=== PATIENT | female | born 1975 | race Caucasian/White ===

== ENCOUNTER 2016-11-11 12:12 | Emergency (ER) | payer SELFPAY ==
[~2016-11-11] VITALS: Ht 160 cm; Wt 56.7 kg
[2016-11-11 12:18] VITALS: BP 128/91
== END 2016-11-11 16:13 | disposition left against medical advice (07) ==
LOC: ER 12:12
DX: R10.9 Unspecified abdominal pain (principal); Z53.21 Procedure and treatment not carried out due to patient leaving prior to being seen by health care provider